=== PATIENT | male | born 1950 | race Caucasian/White ===

== ENCOUNTER 2017-11-24 07:24 | Emergency (ER) | payer OTHER ==
[2017-11-24 07:56] LABS: ADD MAN DIFF? NO
[2017-11-24 07:57] LABS: WHITE BLOOD COUNT 15.6 10^3/ul (4.8-10.8)
[2017-11-24 07:58] LABS: BASOPHILS % 0.3 % (0.0-2.0); EOSINOPHILS % 0.1 % (0.0-7.0); HEMATOCRIT 36.8 % (42.0-52.0); HEMOGLOBIN 12.8 g/dl (14.0-18.0); LYMPHOCYTES # 0.8 10^3/ul (0.8-2.9); LYMPHOCYTES % 5.2 % (15.0-51.0); MEAN CORPUSCULAR HEMOGLOBIN 32.2 pg (29.0-33.0); MEAN CORPUSCULAR HGB CONC 34.8 g/dl (32.0-37.0); MEAN CORPUSCULAR VOLUME 92.7 fl (82.0-101.0); MEAN PLATELET VOLUME 8.4 fl (7.4-10.4); MONOCYTE # 0.6 10^3/ul (0.3-0.9); PLATELET COUNT 420 10^3/UL (140-415); RED BLOOD COUNT 3.97 10^6/ul (4.70-6.10); RED CELL DISTRIBUTION WIDTH 12.5 % (11.5-14.5)
[2017-11-24 08:10] LABS: ANION GAP 14 (8-16); BLOOD UREA NITROGEN 18 mg/dl (7-20); CALCIUM 9.9 mg/dl (8.4-10.2); CARBON DIOXIDE 22 mmol/L (21-31); CHLORIDE 107 mmol/L (97-110); CREATININE 0.88 mg/dl (0.61-1.24); GLUCOSE 133 mg/dl (70-220); POTASSIUM 3.6 mmol/L (3.5-5.1); SODIUM 139 mmol/L (135-144)
[2017-11-24] MEDS: CEPHALEXIN 500 MG CAP PO (08:19)
[2017-11-24 08:21] LABS: ADD UMIC YES; UR ASCORBIC ACID NEGATIVE (NEGATIVE); UR BACTERIA FEW /HPF (NONE SEEN); UR BILIRUBIN (Dip) NEGATIVE (NEGATIVE); UR BLOOD (Dip) 3+ mg/dL (NEGATIVE); UR CLARITY CLOUDY (CLEAR); UR COLOR YELLOW (YELLOW); UR GLUCOSE (Dip) NEGATIVE (NEGATIVE); UR KETONES (Dip) NEGATIVE (NEGATIVE); UR LEUKOCYTE ESTERASE (Dip) 3+ Leu/ul (NEGATIVE); UR NITRITE (Dip) NEGATIVE (NEGATIVE); UR RBC > 182 /HPF (0-5); UR SPECIFIC GRAVITY (Dip) 1.008 (1.003-1.030); UR TOTAL PROTEIN (Dip) 1+ mg/dl (NEGATIVE); UR UROBILINOGEN (Dip) NEGATIVE (NEGATIVE); UR WBC > 182 /HPF (0-5)
[2017-11-24] MEDS: CEFTRIAXONE 1 GM/50 ML (PMX) 50 ML IVPB (08:34)
== END 2017-11-24 08:56 | disposition home or self-care (01) ==
LOC: E/R 07:24
DX: N40.1 Benign prostatic hyperplasia with lower urinary tract symptoms (principal); N30.00 Acute cystitis without hematuria; I10 Essential (primary) hypertension; F17.210 Nicotine dependence, cigarettes, uncomplicated
CPT/HCPCS: 36415; 80048; 81001; 85025; 87086; 96365; 99284-25

== ENCOUNTER 2017-12-17 05:38 | Emergency (ER) | payer MEDICARE, OTHER ==
[2017-12-17 06:48] LABS: ADD MAN DIFF? NO
[2017-12-17 06:53] LABS: WHITE BLOOD COUNT 7.9 10^3/ul (4.8-10.8)
[2017-12-17 06:53] LABS: BASOPHILS % 0.5 % (0.0-2.0); EOSINOPHILS # 0.1 10^3/ul (0.0-0.5); EOSINOPHILS % 1.4 % (0.0-7.0); HEMATOCRIT 39.2 % (42.0-52.0); HEMOGLOBIN 13.3 g/dl (14.0-18.0); LYMPHOCYTES % 25.1 % (15.0-51.0); MEAN CORPUSCULAR HEMOGLOBIN 31.7 pg (29.0-33.0); MEAN CORPUSCULAR HGB CONC 33.9 g/dl (32.0-37.0); MEAN CORPUSCULAR VOLUME 93.6 fl (82.0-101.0); MONOCYTE # 0.4 10^3/ul (0.3-0.9); MONOCYTES % 5.6 % (0.0-11.0); NEUTROPHIL # 5.3 10^3/ul (1.6-7.5); NEUTROPHILS % 67.3 % (39.0-77.0); PLATELET COUNT 360 10^3/UL (140-415); RED BLOOD COUNT 4.19 10^6/ul (4.70-6.10); RED CELL DISTRIBUTION WIDTH 13.2 % (11.5-14.5)
[2017-12-17 07:10] LABS: ANION GAP 11 (8-16); BLOOD UREA NITROGEN 19 mg/dl (7-20); CARBON DIOXIDE 26 mmol/L (21-31); CHLORIDE 108 mmol/L (97-110); CREATININE 0.74 mg/dl (0.61-1.24); GLUCOSE 105 mg/dl (70-220); POTASSIUM 4.2 mmol/L (3.5-5.1); SODIUM 141 mmol/L (135-144)
[2017-12-17 07:11] LABS: CALCIUM 9.4 mg/dl (8.4-10.2); CREATINE KINASE 237 IU/L (23-200)
[2017-12-17 09:21] LABS: ADD UMIC YES; UR AMORPHOUS CRYSTAL FEW /HPF (NONE SEEN); UR ASCORBIC ACID NEGATIVE (NEGATIVE); UR BACTERIA FEW /HPF (NONE SEEN); UR BILIRUBIN (Dip) NEGATIVE (NEGATIVE); UR BLOOD (Dip) 3+ mg/dL (NEGATIVE); UR CLARITY CLEAR (CLEAR); UR COLOR RED (YELLOW); UR GLUCOSE (Dip) NEGATIVE (NEGATIVE); UR KETONES (Dip) NEGATIVE (NEGATIVE); UR LEUKOCYTE ESTERASE (Dip) 2+ Leu/ul (NEGATIVE); UR MUCUS FEW /HPF (NONE SEEN); UR NITRITE (Dip) NEGATIVE (NEGATIVE); UR RBC > 182 /HPF (0-5); UR SPECIFIC GRAVITY (Dip) 1.004 (1.003-1.030); UR TOTAL PROTEIN (Dip) 2+ mg/dl (NEGATIVE); UR UROBILINOGEN (Dip) NEGATIVE (NEGATIVE); UR WBC 108 /HPF (0-5)
== END 2017-12-17 09:54 | disposition home or self-care (01) ==
LOC: E/R 05:38
DX: N30.01 Acute cystitis with hematuria (principal); R40.2142 Coma scale, eyes open, spontaneous, at arrival to emergency department; R40.2362 Coma scale, best motor response, obeys commands, at arrival to emergency department; R40.2252 Coma scale, best verbal response, oriented, at arrival to emergency department
CPT/HCPCS: 36415; 80048; 81001; 82550; 85025; 87086; 99283-25

== ENCOUNTER 2018-01-01 23:14 | Emergency (ER) | payer MEDICARE, OTHER ==
[2018-01-02 00:41] LABS: WHITE BLOOD COUNT 11.1 10^3/ul (4.8-10.8)
[2018-01-02 00:41] LABS: ADD MAN DIFF? NO
[2018-01-02 00:42] LABS: BASOPHIL # 0.1 10^3/ul (0.0-0.1); BASOPHILS % 0.5 % (0.0-2.0); EOSINOPHILS % 0.4 % (0.0-7.0); HEMATOCRIT 35.2 % (42.0-52.0); HEMOGLOBIN 12.4 g/dl (14.0-18.0); LYMPHOCYTES # 1.3 10^3/ul (0.8-2.9); LYMPHOCYTES % 11.5 % (15.0-51.0); MEAN CORPUSCULAR HEMOGLOBIN 32.6 pg (29.0-33.0); MEAN CORPUSCULAR HGB CONC 35.2 g/dl (32.0-37.0); MEAN CORPUSCULAR VOLUME 92.6 fl (82.0-101.0); MONOCYTE # 0.5 10^3/ul (0.3-0.9); MONOCYTES % 4.6 % (0.0-11.0); NEUTROPHIL # 9.2 10^3/ul (1.6-7.5); NEUTROPHILS % 82.5 % (39.0-77.0); PLATELET COUNT 361 10^3/UL (140-415); RED CELL DISTRIBUTION WIDTH 13.1 % (11.5-14.5)
[2018-01-02] MEDS: SOD CHLORIDE 0.9% 1,000 ML IV (00:43)
[2018-01-02] MEDS: KETOROLAC 30 MG INJ IV (00:44)
[2018-01-02 00:46] LABS: ADD UMIC YES; UR ASCORBIC ACID NEGATIVE (NEGATIVE); UR BILIRUBIN (Dip) NEGATIVE (NEGATIVE); UR BLOOD (Dip) 3+ mg/dL (NEGATIVE); UR CLARITY CLOUDY (CLEAR); UR COLOR YELLOW (YELLOW); UR GLUCOSE (Dip) NEGATIVE (NEGATIVE); UR KETONES (Dip) NEGATIVE (NEGATIVE); UR LEUKOCYTE ESTERASE (Dip) NEGATIVE Leu/ul (NEGATIVE); UR NITRITE (Dip) NEGATIVE (NEGATIVE); UR RBC 1 /HPF (0-5); UR SPECIFIC GRAVITY (Dip) 1.001 (1.003-1.030); UR TOTAL PROTEIN (Dip) NEGATIVE (NEGATIVE); UR UROBILINOGEN (Dip) NEGATIVE (NEGATIVE); UR WBC 0 /HPF (0-5)
[2018-01-02 01:00] LABS: ALANINE AMINOTRANSFERASE 38 IU/L (13-69); ALBUMIN 3.7 g/dl (3.3-4.9); ALBUMIN/GLOBULIN RATIO 1.32; ALKALINE PHOSPHATASE 50 IU/L (42-121); ANION GAP 16 (8-16); ASPARTATE AMINO TRANSFERASE 40 IU/L (15-46); BILIRUBIN,INDIRECT 0.6 mg/dl (0-1.1); BILIRUBIN,TOTAL 0.6 mg/dl (0.2-1.3); BLOOD UREA NITROGEN 13 mg/dl (7-20); CALCIUM 9.6 mg/dl (8.4-10.2); CARBON DIOXIDE 20 mmol/L (21-31); CHLORIDE 108 mmol/L (97-110); GLUCOSE 99 mg/dl (70-220); LIPASE 34 U/L (23-300); POTASSIUM 3.7 mmol/L (3.5-5.1); SODIUM 140 mmol/L (135-144); TOTAL PROTEIN 6.5 g/dl (6.1-8.1)
== END 2018-01-02 02:34 | disposition home or self-care (01) ==
LOC: E/R 23:14
DX: T83.098A Other mechanical complication of other urinary catheter, initial encounter (principal); Y73.2 Prosthetic and other implants, materials and accessory gastroenterology and urology devices associated with adverse incidents; Z87.891 Personal history of nicotine dependence
CPT/HCPCS: 36415; 80053; 81001; 83690; 85025; 96374; 99284-25

== ENCOUNTER 2018-01-02 10:30 | Emergency (ER) | payer MEDICARE, OTHER ==
[2018-01-02 11:14] LABS: ADD MAN DIFF? NO
[2018-01-02 11:16] LABS: BASOPHILS % 0.4 % (0.0-2.0); EOSINOPHILS # 0.1 10^3/ul (0.0-0.5); EOSINOPHILS % 0.7 % (0.0-7.0); HEMATOCRIT 38.4 % (42.0-52.0); HEMOGLOBIN 13.3 g/dl (14.0-18.0); LYMPHOCYTES # 2.1 10^3/ul (0.8-2.9); LYMPHOCYTES % 20.7 % (15.0-51.0); MEAN CORPUSCULAR HEMOGLOBIN 31.9 pg (29.0-33.0); MEAN CORPUSCULAR HGB CONC 34.6 g/dl (32.0-37.0); MEAN CORPUSCULAR VOLUME 92.1 fl (82.0-101.0); MEAN PLATELET VOLUME 8.9 fl (7.4-10.4); MONOCYTE # 0.7 10^3/ul (0.3-0.9); MONOCYTES % 6.5 % (0.0-11.0); NEUTROPHIL # 7.4 10^3/ul (1.6-7.5); NEUTROPHILS % 71.3 % (39.0-77.0); PLATELET COUNT 402 10^3/UL (140-415); RED BLOOD COUNT 4.17 10^6/ul (4.70-6.10); RED CELL DISTRIBUTION WIDTH 13.1 % (11.5-14.5)
[2018-01-02 11:16] LABS: WHITE BLOOD COUNT 10.3 10^3/ul (4.8-10.8)
[2018-01-02] MEDS: ONDANSETRON 4 MG INJ IV (11:23)
[2018-01-02] MEDS: morphine 4 MG/ML VIAL IV (11:23)
[2018-01-02 11:34] LABS: ALANINE AMINOTRANSFERASE 25 IU/L (13-69); ALBUMIN 4.4 g/dl (3.3-4.9); ALBUMIN/GLOBULIN RATIO 1.57; ALKALINE PHOSPHATASE 62 IU/L (42-121); ANION GAP 14 (8-16); ASPARTATE AMINO TRANSFERASE 42 IU/L (15-46); BILIRUBIN,INDIRECT 0.9 mg/dl (0-1.1); BILIRUBIN,TOTAL 0.9 mg/dl (0.2-1.3); BLOOD UREA NITROGEN 13 mg/dl (7-20); CALCIUM 9.8 mg/dl (8.4-10.2); CARBON DIOXIDE 21 mmol/L (21-31); CHLORIDE 112 mmol/L (97-110); CREATININE 0.83 mg/dl (0.61-1.24); GLUCOSE 109 mg/dl (70-220); POTASSIUM 3.9 mmol/L (3.5-5.1); SODIUM 143 mmol/L (135-144); TOTAL PROTEIN 7.2 g/dl (6.1-8.1)
[2018-01-02 11:35] LABS: ADD UMIC YES; UR ASCORBIC ACID 40 mg/dL (NEGATIVE); UR BILIRUBIN (Dip) NEGATIVE (NEGATIVE); UR BLOOD (Dip) 2+ mg/dL (NEGATIVE); UR CLARITY CLOUDY (CLEAR); UR COLOR YELLOW (YELLOW); UR GLUCOSE (Dip) NEGATIVE (NEGATIVE); UR KETONES (Dip) TRACE mg/dL (NEGATIVE); UR LEUKOCYTE ESTERASE (Dip) 3+ Leu/ul (NEGATIVE); UR MUCUS MANY /HPF (NONE SEEN); UR NITRITE (Dip) NEGATIVE (NEGATIVE); UR RBC 36 /HPF (0-5); UR SPECIFIC GRAVITY (Dip) 1.023 (1.003-1.030); UR TOTAL PROTEIN (Dip) 1+ mg/dl (NEGATIVE); UR UROBILINOGEN (Dip) NEGATIVE (NEGATIVE); UR WBC 26 /HPF (0-5)
[2018-01-02 11:36] LABS: INR 0.88; PT RATIO 0.9
[2018-01-02 11:37] LABS: PARTIAL THROMBOPLASTIN TIME 28.4 Sec (23.0-35.0)
== END 2018-01-02 14:12 | disposition home or self-care (01) ==
LOC: E/R 10:30
DX: T83.098A Other mechanical complication of other urinary catheter, initial encounter (principal); F17.210 Nicotine dependence, cigarettes, uncomplicated; R06.02 Shortness of breath; R10.9 Unspecified abdominal pain; Y73.2 Prosthetic and other implants, materials and accessory gastroenterology and urology devices associated with adverse incidents; Z46.6 Encounter for fitting and adjustment of urinary device
CPT/HCPCS: 36415; 80053; 81001; 85025; 85610; 85730; 87086; 96374; 96375; 99284-25

== ENCOUNTER 2018-04-05 12:57 | Emergency (ER) | payer MEDICARE, OTHER ==
[2018-04-05] MEDS: LIDOCAINE 2% 20 ML UROJET SYRINGE MM (15:30)
[2018-04-05 16:30] LABS: ADD UMIC YES; UR ASCORBIC ACID 40 mg/dL (NEGATIVE); UR BACTERIA FEW /HPF (NONE SEEN); UR BILIRUBIN (Dip) NEGATIVE (NEGATIVE); UR BLOOD (Dip) 3+ mg/dL (NEGATIVE); UR CLARITY CLOUDY (CLEAR); UR COLOR RED (YELLOW); UR GLUCOSE (Dip) NEGATIVE (NEGATIVE); UR KETONES (Dip) 1+ mg/dL (NEGATIVE); UR LEUKOCYTE ESTERASE (Dip) NEGATIVE Leu/ul (NEGATIVE); UR MUCUS FEW /HPF (NONE SEEN); UR NITRITE (Dip) NEGATIVE (NEGATIVE); UR RBC > 182 /HPF (0-5); UR SPECIFIC GRAVITY (Dip) 1.021 (1.003-1.030); UR TOTAL PROTEIN (Dip) 2+ mg/dl (NEGATIVE); UR UROBILINOGEN (Dip) NEGATIVE (NEGATIVE); UR WBC 174 /HPF (0-5)
== END 2018-04-05 17:44 | disposition home or self-care (01) ==
LOC: FTE 12:57
DX: N39.0 Urinary tract infection, site not specified (principal); F17.210 Nicotine dependence, cigarettes, uncomplicated; Z96.0 Presence of urogenital implants
CPT/HCPCS: 51702; 81001; 99283-25

== ENCOUNTER 2018-06-12 10:27 | Emergency (ER) | payer MEDICARE, OTHER ==
[2018-06-12 12:00] LABS: ADD UMIC YES; UR ASCORBIC ACID NEGATIVE (NEGATIVE); UR BACTERIA FEW /HPF (NONE SEEN); UR BILIRUBIN (Dip) NEGATIVE (NEGATIVE); UR BLOOD (Dip) 3+ mg/dL (NEGATIVE); UR BUDDING YEAST FEW /HPF (NONE SEEN); UR CALCIUM OXALATE CRYSTAL MANY /HPF (NONE SEEN); UR CLARITY SLIGHTLY CLOUDY (CLEAR); UR COLOR YELLOW (YELLOW); UR GLUCOSE (Dip) NEGATIVE (NEGATIVE); UR KETONES (Dip) NEGATIVE (NEGATIVE); UR LEUKOCYTE ESTERASE (Dip) 1+ Leu/ul (NEGATIVE); UR NITRITE (Dip) NEGATIVE (NEGATIVE); UR RBC > 182 /HPF (0-5); UR SPECIFIC GRAVITY (Dip) 1.009 (1.003-1.030); UR TOTAL PROTEIN (Dip) NEGATIVE (NEGATIVE); UR UROBILINOGEN (Dip) NEGATIVE (NEGATIVE); UR WBC 11 /HPF (0-5)
[2018-06-12] MEDS: FLUCONAZOLE 150 MG TAB PO (12:22)
== END 2018-06-12 12:25 | disposition home or self-care (01) ==
LOC: FTE 10:27
DX: N39.0 Urinary tract infection, site not specified (principal); Z46.6 Encounter for fitting and adjustment of urinary device
CPT/HCPCS: 51702; 81001; 87086; 99283-25

== ENCOUNTER 2018-07-04 03:50 | Emergency (ER) | payer MEDICARE, OTHER ==
[2018-07-04] MEDS: LIDOCAINE 2% 20 ML UROJET SYRINGE MM (04:03)
[2018-07-04 04:22] LABS: URINE BLOOD (Dip) POC 3+ (NEGATIVE); URINE GLUCOSE (Dip) POC Negative (NEGATIVE); URINE KETONES (Dip) POC Trace (NEGATIVE); URINE LEUKOCYTE EST (Dip) POC Trace (NEGATIVE); URINE NITRITE (Dip) POC Negative (NEGATIVE); URINE TOTAL PROTEIN POC 2+ (NEGATIVE)
== END 2018-07-04 05:51 | disposition home or self-care (01) ==
LOC: E/R 03:50
DX: T83.098A Other mechanical complication of other urinary catheter, initial encounter (principal); R33.9 Retention of urine, unspecified; Y73.3 Surgical instruments, materials and gastroenterology and urology devices (including sutures) associated with adverse incidents
CPT/HCPCS: 51702; 81003; 87086; 99283-25

== ENCOUNTER 2018-07-10 22:17 | Emergency (ER) | payer MEDICARE, OTHER ==
[2018-07-11 03:37] LABS: ADD UMIC YES; UR ASCORBIC ACID NEGATIVE (NEGATIVE); UR BACTERIA FEW /HPF (NONE SEEN); UR BILIRUBIN (Dip) NEGATIVE (NEGATIVE); UR BLOOD (Dip) 3+ mg/dL (NEGATIVE); UR CLARITY SLIGHTLY CLOUDY (CLEAR); UR COLOR YELLOW (YELLOW); UR GLUCOSE (Dip) NEGATIVE (NEGATIVE); UR KETONES (Dip) NEGATIVE (NEGATIVE); UR LEUKOCYTE ESTERASE (Dip) NEGATIVE Leu/ul (NEGATIVE); UR NITRITE (Dip) NEGATIVE (NEGATIVE); UR RBC 26 /HPF (0-5); UR SPECIFIC GRAVITY (Dip) 1.006 (1.003-1.030); UR TOTAL PROTEIN (Dip) NEGATIVE (NEGATIVE); UR UROBILINOGEN (Dip) NEGATIVE (NEGATIVE); UR WBC 2 /HPF (0-5)
[2018-07-11] MEDS: LIDOCAINE 2% JEL.PF.APP 5 ML UROJET SYRINGE MM (05:41)
== END 2018-07-11 06:07 | disposition home or self-care (01) ==
LOC: FTE 07-11 06:07
DX: T85.9XXA Unspecified complication of internal prosthetic device, implant and graft, initial encounter (principal); N39.0 Urinary tract infection, site not specified; Y73.2 Prosthetic and other implants, materials and accessory gastroenterology and urology devices associated with adverse incidents
CPT/HCPCS: 51702; 76856; 81001; 99284-25

== ENCOUNTER 2018-08-01 15:20 | Emergency (ER) | payer MEDICARE, OTHER ==
[2018-08-01 17:02] LABS: URINE BLOOD (Dip) POC 3+ (NEGATIVE); URINE GLUCOSE (Dip) POC Negative (NEGATIVE); URINE KETONES (Dip) POC Negative (NEGATIVE); URINE LEUKOCYTE EST (Dip) POC 1+ (NEGATIVE); URINE NITRITE (Dip) POC Positive (NEGATIVE); URINE TOTAL PROTEIN POC 2+ (NEGATIVE)
== END 2018-08-01 17:23 | disposition home or self-care (01) ==
LOC: FTE 15:20
DX: N30.00 Acute cystitis without hematuria (principal); Y73.2 Prosthetic and other implants, materials and accessory gastroenterology and urology devices associated with adverse incidents
CPT/HCPCS: 51702; 81003; 99283-25

== ENCOUNTER 2018-10-06 13:31 | Emergency (ER) | payer MEDICARE, OTHER ==
[2018-10-06] MEDS: LIDOCAINE 2% 20 ML UROJET SYRINGE MM ×2 (14:11→14:34)
[2018-10-06 14:35] LABS: URINE BLOOD (Dip) POC 3+ (NEGATIVE); URINE GLUCOSE (Dip) POC Negative (NEGATIVE); URINE KETONES (Dip) POC Trace (NEGATIVE); URINE LEUKOCYTE EST (Dip) POC 1+ (NEGATIVE); URINE NITRITE (Dip) POC Negative (NEGATIVE); URINE TOTAL PROTEIN POC 3+ (NEGATIVE)
[2018-10-06] MEDS: LIDOCAINE 1% (MPF) 5 ML VIAL INJ (14:52)
[2018-10-06] MEDS: CEFTRIAXONE 1 GM INJ IM (14:52)
== END 2018-10-06 15:17 | disposition home or self-care (01) ==
LOC: FTE 13:31
DX: T83.098A Other mechanical complication of other urinary catheter, initial encounter (principal); N39.0 Urinary tract infection, site not specified; Y73.2 Prosthetic and other implants, materials and accessory gastroenterology and urology devices associated with adverse incidents
CPT/HCPCS: 51702; 81003; 87086; 96372; 99284-25

== ENCOUNTER 2018-12-10 11:30 | Inpatient (IN) | payer BC, OTHER, MEDICARE ==
[2018-12-10] MEDS: LIDOCAINE 2% 20 ML UROJET SYRINGE MM (14:20)
[2018-12-10] MEDS: HYDROCODONE/APAP (5/325) TAB PO (18:49)
[2018-12-10] MEDS ORDERED: ACETAMINOPHEN 325 MG TAB PO (20:30)
[2018-12-10] MEDS ORDERED: ONDANSETRON 4 MG INJ IV (20:30)
[2018-12-10] MEDS: CEFTRIAXONE 1 GM/50 ML (PMX) 50 ML IVPB (20:48)
[2018-12-10] MEDS: ZOLPIDEM 5 MG TAB PO (22:33)
[2018-12-10] MEDS ORDERED: HYDROCODONE/APAP (5/325) TAB PO ×2 (23:30)
[2018-12-10] MEDS ORDERED: NACL 0.9% 3 ML SYG IV (23:30)
[2018-12-10] MEDS: SOD CHLORIDE 0.9% 1,000 ML IV (23:51)
[2018-12-11] MEDS: PANTOPRAZOLE SODIUM 20 MG TABEC PO (06:23)
[2018-12-11] MEDS: TAMSULOSIN (SR) 0.4 MG CAP PO ×2 (09:08→21:40)
[2018-12-11] MEDS: CITALOPRAM 20 MG TAB PO (09:08)
[2018-12-11] MEDS: CEFTRIAXONE 1 GM/50 ML (PMX) 50 ML IVPB (09:09)
[2018-12-11] MEDS: SOD CHLORIDE 0.9% 1,000 ML IV (10:39)
[2018-12-11] MEDS: ACETAMINOPHEN 325 MG TAB PO (13:13)
[2018-12-11] MEDS: LOSARTAN 25 MG TAB PO (21:41)
[2018-12-12] MEDS: PANTOPRAZOLE SODIUM 20 MG TABEC PO (06:21)
[2018-12-12] MEDS: TAMSULOSIN (SR) 0.4 MG CAP PO ×2 (09:16→21:42)
[2018-12-12] MEDS: CITALOPRAM 20 MG TAB PO (09:16)
[2018-12-12] MEDS: LOSARTAN 25 MG TAB PO (09:17)
[2018-12-12] MEDS: ACETAMINOPHEN 325 MG TAB PO (09:18)
[2018-12-12] MEDS: CEFTRIAXONE 1 GM/50 ML (PMX) 50 ML IVPB (10:08)
[2018-12-13] MEDS: PANTOPRAZOLE SODIUM 20 MG TABEC PO (06:41)
[2018-12-13] MEDS: CEFTRIAXONE 1 GM/50 ML (PMX) 50 ML IVPB (10:00)
[2018-12-13] MEDS: CITALOPRAM 20 MG TAB PO (10:00)
[2018-12-13] MEDS: TAMSULOSIN (SR) 0.4 MG CAP PO ×2 (10:01→20:56)
[2018-12-13] MEDS: LOSARTAN 25 MG TAB PO (10:01)
[2018-12-13] MEDS ORDERED: VANCOMYCIN IV PER PHARMACY XX (11:00)
[2018-12-13] MEDS: VANCOMYCIN 1.5 GM/NS 250 ML 250 ML IVPB (15:06)
[2018-12-13] MEDS: LACTOBACILLUS RHAMNOSUS CAP PO (20:56)
[2018-12-13] MEDS: ZOLPIDEM 5 MG TAB PO (22:50)
[2018-12-14] MEDS: VANCOMYCIN 500 MG (PMX) 100 ML IVPB ×2 (01:27→14:12)
[2018-12-14] MEDS: PANTOPRAZOLE SODIUM 20 MG TABEC PO (06:44)
[2018-12-14] MEDS: CEFTRIAXONE 1 GM/50 ML (PMX) 50 ML IVPB (09:17)
[2018-12-14] MEDS: TAMSULOSIN (SR) 0.4 MG CAP PO ×2 (09:17→21:00)
[2018-12-14] MEDS: LOSARTAN 25 MG TAB PO (09:18)
[2018-12-14] MEDS: LACTOBACILLUS RHAMNOSUS CAP PO ×2 (09:18→21:00)
[2018-12-14] MEDS: CITALOPRAM 20 MG TAB PO (09:18)
[2018-12-14] MEDS ORDERED: FENTAnyl 50 MCG/ML VIAL ×2 (18:26→19:18)
[2018-12-14] MEDS ORDERED: DIPHENHYDRAMINE 50 MG INJ IV (18:30)
[2018-12-14] MEDS ORDERED: ONDANSETRON 4 MG INJ IV (18:30)
[2018-12-14] MEDS ORDERED: HYDROmorphONE 1 MG/5 ML IV SYRINGE IV (18:30)
[2018-12-14] MEDS ORDERED: METOCLOPRAMIDE 10 MG INJ IV (18:30)
[2018-12-14] MEDS ORDERED: FENTAnyl 50 MCG/ML VIAL IV ×2 (18:30)
[2018-12-14] MEDS ORDERED: ALBUTEROL 0.083% (NEB) 2.5 MG/3 ML AMP HHN (18:30)
[2018-12-14] MEDS ORDERED: SUCCINYLCHOLINE CHLORIDE 100 MG/5 ML SYG IV (18:46)
[2018-12-14] MEDS ORDERED: ROCURONIUM 50 MG INJ (18:46)
[2018-12-14] MEDS ORDERED: LIDOCAINE 100 MG SYRINGE (18:46)
[2018-12-14] MEDS ORDERED: PROPOFOL 20 ML (18:46)
[2018-12-14] MEDS ORDERED: SUGAMMADEX SODIUM 200 MG/2 ML VIAL IV (18:47)
[2018-12-14] MEDS ORDERED: LABETALOL HCL 20MG INJ (18:47)
[2018-12-14] MEDS ORDERED: hydrALAzine 20 MG INJ (19:08)
[2018-12-14] MEDS: MEPERIDINE 25 MG INJ IV (20:46)
[2018-12-14] MEDS: HYDROmorphONE 1 MG/5 ML IV SYRINGE IV (21:33)
[2018-12-15] MEDS: ONDANSETRON 4 MG INJ IV (02:28)
[2018-12-15] MEDS: VANCOMYCIN 750 MG (PMX) 250 ML IVPB ×2 (04:45→16:04)
[2018-12-15] MEDS: PANTOPRAZOLE SODIUM 20 MG TABEC PO (07:41)
[2018-12-15] MEDS: ACETAMINOPHEN 325 MG TAB PO (07:42)
[2018-12-15] MEDS: TAMSULOSIN (SR) 0.4 MG CAP PO ×2 (08:26→21:09)
[2018-12-15] MEDS: LACTOBACILLUS RHAMNOSUS CAP PO ×2 (08:26→21:09)
[2018-12-15] MEDS: CEFTRIAXONE 1 GM/50 ML (PMX) 50 ML IVPB (08:26)
[2018-12-15] MEDS: LOSARTAN 25 MG TAB PO (08:27)
[2018-12-15] MEDS: CITALOPRAM 20 MG TAB PO (09:13)
== END 2018-12-15 22:45 | DRG 666 ==
LOC: E/R 11:30 → MS1 12-13 16:54
PROC: 0VB08ZZ Excision of Prostate, Via Natural or Artificial Opening Endoscopic (ICD-10-PCS; principal; 2018-12-14 17:30)
PROC: 0T2BX0Z Change Drainage Device in Bladder, External Approach (ICD-10-PCS; 2018-12-14 18:23)
DX: T83.091A Other mechanical complication of indwelling urethral catheter, initial encounter (principal); N39.0 Urinary tract infection, site not specified; N13.8 Other obstructive and reflux uropathy; N40.1 Benign prostatic hyperplasia with lower urinary tract symptoms; R31.0 Gross hematuria; F32.9 Major depressive disorder, single episode, unspecified; R33.8 Other retention of urine; B95.62 Methicillin resistant Staphylococcus aureus infection as the cause of diseases classified elsewhere; Z59.0 Homelessness; I10 Essential (primary) hypertension; Y84.6 Urinary catheterization as the cause of abnormal reaction of the patient, or of later complication, without mention of misadventure at the time of the procedure
CPT/HCPCS: 71045; 74176; 80048; 80053; 80202; 81001; 83735; 84100; 85025; 85610; 85730; 87040-91; 87086; 88305; 93005; 99285-25